=== PATIENT | male | born 1975 | race Caucasian/White ===

== ENCOUNTER 2018-08-25 06:02 | Emergency (ER) | payer SELFPAY ==
[~2018-08-25] VITALS: Ht 188 cm; Wt 109.1 kg
[2018-08-25] MEDS ORDERED: METF-960 PO (06:23)
[2018-08-25 06:39] LABS: GLUCOSE,POINT OF CARE 187 MG/DL (70-110)
[2018-08-25] MEDS ORDERED: BACITRACIN 0.9 GM PACKET OINTMENT TP ONE (07:30)
[2018-08-25] MEDS ORDERED: PERTUSS(ACELL),DIPH,TET VAC/PF 0.5 ML VIAL IM ONE (07:30)
[2018-08-25 08:45] VITALS: BP 123/78
== END 2018-08-25 08:58 | disposition home or self-care (01) ==
LOC: EMS 06:02
DX: F10.129 Alcohol abuse with intoxication, unspecified (principal); S60.511A Abrasion of right hand, initial encounter; S60.811A Abrasion of right wrist, initial encounter; E11.9 Type 2 diabetes mellitus without complications; W19.XXXA Unspecified fall, initial encounter; Y93.89 Activity, other specified; Y92.89 Other specified places as the place of occurrence of the external cause; Y99.8 Other external cause status; Y90.9 Presence of alcohol in blood, level not specified
CPT/HCPCS: 90471; 90715